=== PATIENT | female | born 1965 | race Asian ===

== ENCOUNTER 2017-03-06 16:06 | Emergency (ER) | payer BC ==
[2017-03-06 16:47] VITALS: BP 123/68
--- NOTE | 2017-03-06 17:43 | UC ---
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 LACERATION TO RIGHT (MEDIAL) FOOT AT HEEL. TETANUS UTD. - History Of Current Complaint Chief Complaint: UCLaceration Stated Complaint: RT FOOT LAC Time Seen by Provider: 03/06/17 16:40 Hx Obtained From: Patient Laceration Location: Foot Mechanism Of Injury: Sharp Trauma Onset/Duration: Sudden Onset, Lasting Hours, Still Present Severity: Mild Aggravating Factors: Movement - Allergies/Home Medications Allergies/Adverse Reactions: Allergies Allergy/AdvReac Type Severity Reaction Status Date / Time No Known Allergies Allergy Verified 03/06/17 16:47 Home Medications: Home Medications Melatonin 10 mg PO DAILY 03/06/17 [History Confirmed 03/06/17] PMH/Surg Hx/FS Hx/Imm Hx Previously Healthy: Yes - Surgical History Surgical History: Yes Surgery Procedure, Year, and Place: mastoidectomy. hysterectomy. tonsillectomy. Bronchoscopy with Mediastinoscopy - Family History Known Family History: Negative: Blood Disorder - Social History Occupation: Unemployed Lives: With Family Alcohol Use: None Substance Use Type: None Smoking Status (MU): Never Smoked Tobacco Review of Systems Constitutional: Negative Skin: Other - LACERATION RIGHT MEDIAL HEEL Eyes: Negative ENT: Negative Respiratory: Negative Cardiovascular: Negative Gastrointestinal: Negative Genitourinary: Negative Motor: Negative Neurovascular: Negative Musculoskeletal: Negative Neurological: Negative Psychological: Negative All Other Systems Reviewed And Are Negative: Yes Physical Exam Triage Information Reviewed: Yes Appearance: Well-Appearing, No Pain Distress Vital Signs: Initial Vital Signs Temp 97.2 F 03/06/17 16:42 Pulse 93 03/06/17 16:42 Resp 16 03/06/17 16:42 BP 123/68 03/06/17 16:42 Pulse Ox 99 03/06/17 16:42 Vital Signs Reviewed: Yes Eye Exam: Normal ENT Exam: Normal ENT: Positive: Normal ENT inspection Dental Exam: Normal Neck exam: Normal Neck: Positive: Supple Respiratory Exam: Normal Respiratory: Positive: Chest non-tender, Lungs clear, Normal breath sounds, No respiratory distress, No accessory muscle use Cardiovascular Exam: Normal Cardiovascular: Positive: RRR, No Murmur, Pulses Normal, Brisk Capillary Refill Abdominal Exam: Normal Musculoskeletal Exam: Normal Neurological Exam: Normal Psychological Exam: Normal Skin: Positive: Other - LACERATION RIGHT HEEL Laceration Repair - Laceration Repair 1 Description: Linear Laceration Size After Repair: Length (cm) - 2, Width (mm) - 4, Depth (mm) - 2 Cleansing Completed Via Routine Prep: Yes Irrigation With Pressure Irrigation Device: Yes Closure Material: Skin Adhesive, SteriStrips Suture Of: Skin Laceration Course/Dx - Differential Dx - Laceration/Wound Differental Diagnoses: Cellulitis, Joint Infection, Laceration Provider Diagnoses: RIGHT HEEL LACERATION WITH ADHESIVS/STERISTRIP REPAIR Discharge - Discharge Plan Condition: Stable Disposition: HOME Patient Education Materials: Skin Adhesive Care (ED), Steristrips (ED) Referrals: Kavita Moncada [Physician Resident Manager] -
== END 2017-03-06 17:49 | disposition home or self-care (01) ==
LOC: UCCORT 16:06
DX: S91.311A Laceration without foreign body, right foot, initial encounter (principal); W31.89XA Contact with other specified machinery, initial encounter
CPT/HCPCS: 12001; 99201; G0463

== ENCOUNTER 2017-04-02 07:53 | Emergency (ER) | payer BC ==
[2017-04-02] MEDS ORDERED: NS 0.9% 1000 ML* 1,000 ML IV ONE (08:42)
--- NOTE | 2017-04-02 09:09 | RAD ---
HISTORY: Left ankle medially, rule out osteomyelitis COMPARISONS: None VIEWS: 3, Frontal, lateral, and oblique views of the left ankle FINDINGS: BONE DENSITY: Normal. BONES: There is no displaced fracture. There is no appreciable erosion or periosteal reaction. JOINTS: There is no arthropathy. ALIGNMENT: There is no dislocation. SOFT TISSUES: There is a soft tissue defect with dystrophic calcification along the medial aspect of the ankle. OTHER FINDINGS: None. IMPRESSION: NO ACUTE OSSEOUS INJURY. NO APPRECIABLE EROSION OR PERIOSTEAL REACTION. PLAIN FILM FINDINGS OF OSTEOMYELITIS ARE RELATIVELY LATE FINDINGS. IF THERE IS PERSISTENT CLINICAL CONCERN FOR OSTEOMYELITIS, RECOMMEND CORRELATION WITH FOLLOWUP IMAGING, THREE-PHASE BONE SCANNING, WHITE BLOOD CELL SCAN, AND/OR MRI OF THE AFFECTED REGION.
[2017-04-02 09:18] LABS: Hematocrit 43 % (35-47); Mean Corpuscular HGB Conc 33 g/dl (31-36); Mean Corpuscular Hemoglobin 29 pg (27-31); Mean Corpuscular Volume 88 fL (80-97); Mean Platelet Volume 9 um3 (7.4-10.4); Red Blood Count 4.88 10^6/ul (4.0-5.4); Red Cell Distribution Width 14 % (10.5-15); White Blood Count 6.3 10^3/ul (3.5-10.8)
--- NOTE | 2017-04-02 09:18 | ED ---
Fior Silvestre Alfonso, scribed for Caroline Underwood MD on 04/02/17 at 0832 . Lower Extremity - HPI Summary HPI Summary: This patient is a 52 year old F presenting to [facility] with a chief complaint of a right heel wound since one month ago (03/04). There has been continual drainage from this wound. The patient rates the aching and referred pain 4/10 in severity. Symptoms aggravated by ambulation and alleviated by nothing. Patient reports diaphoresis (since yesterday and worse through the night), SOB ( on exertion), anxiousness, increased thirst, and shaking. Patient denies CP, knee pain, and abdominal pain. Pt sees Dr. Guo (surgeon) who applied a new dressing and prescribed a Bactrim as well as diflucan for 7 day course on 03/29 for this wound. The wound was last packed this morning after a shower. Pt scheduled to see Dr. Guo in follow-up as well as have a vascular study on Saturday. Pt with Denies PMHx of MRSA, cancer, and DM. PMHx of HTN, and sarcoidosis. PSHx of hysterectomy and mastoidectomy. Patients medication reviewed this visit. - History of Current Complaint Chief Complaint: EDGeneral Stated Complaint: NAUSEA/SWEATING Time Seen by Provider: 04/02/17 08:09 Hx Obtained From: Patient Onset of Pain: Prior to Arrival Onset/Duration: Still Present - 1 month Severity Initially: Moderate Severity Currently: Moderate Pain Intensity: 4 Pain Scale Used: 0-10 Numeric Timing: Constant Location: Is Discrete @ - right heel Character Of Pain: Aching - and "referred" Associated Signs And Symptoms: Positive: Other - Patient reports diaphoresis ( since yesterday and worse through the night), SOB (on exertion), anxiousness, increased thirst, and shaking. Patient denies CP, knee pain, and abdominal pain. Aggravating Factor(s): Ambulation Alleviating Factor(s): Nothing - Allergies/Home Medications Allergies/Adverse Reactions: Allergies Allergy/AdvReac Type Severity Reaction Status Date / Time No Known Allergies Allergy Verified 04/02/17 07:55 PMH/Surg Hx/FS Hx/Imm Hx Previously Healthy: Yes Endocrine/Hematology History: Denies: Hx Anticoagulant Therapy Cardiovascular History: Reports: Hx Hypertension Respiratory History: Reports: Hx Asthma, Hx Sleep Apnea - current CPAP user, Other Respiratory Problems/Disorders - sarcoidosis GI History: Reports: Hx Gastroesophageal Reflux Disease Musculoskeletal History: Reports: Hx Fibromyalgia - new dx 05/2013 Sensory History: Reports: Hx Contacts or Glasses Opthamlomology History: Reports: Hx Contacts or Glasses Neurological History: Reports: Hx Headaches Psychiatric History: Reports: Hx Depression - Surgical History Surgery Procedure, Year, and Place: mastoidectomy. hysterectomy. tonsillectomy. Bronchoscopy with Mediastinoscopy Hx Anesthesia Reactions: No Infectious Disease History: No Infectious Disease History: Denies: Traveled Outside the [place] in Last 30 Days - Family History Known Family History: Positive: Hypertension, Diabetes - Sister Negative: Blood Disorder - Social History Occupation: Unemployed Lives: Alone Alcohol Use: None Substance Use Type: Reports: None Smoking Status (MU): Never Smoked Tobacco Review of Systems Positive: Skin Diaphoresis, Other - Positive increased thirst and shaking. Eyes: Negative ENT: Negative Cardiovascular: Negative Negative: Chest Pain Positive: Shortness Of Breath Gastrointestinal: Negative Genitourinary: Negative Musculoskeletal: Negative Positive: Other - Negative knee pain. Positive: Other - Positive right heel wound, mild erythema Neurological: Negative Positive: Anxious All Other Systems Reviewed And Are Negative: Yes Physical Exam Triage Information Reviewed: Yes Vital Signs On Initial Exam: Initial Vitals Temp Pulse Resp BP Pulse Ox 95.9 F 94 20 140/104 100 04/02/17 07:55 04/02/17 07:55 04/02/17 07:55 04/02/17 07:55 04/02/17 07:55 Vital Signs Reviewed: Yes Appearance: Positive: Well-Nourished Skin: Positive: Warm, Erythema @ - left medial ankle pt with open wound, minimal circumferential erythema, no odor, no fluctuance, no induration, Other - pt diaphoretic Head/Face: Positive: Normal Head/Face Inspection Eyes: Positive: Normal, EOMI, MEGAN ENT: Positive: Normal ENT inspection Neck: Positive: Supple, Nontender, No Lymphadenopathy Respiratory/Lung Sounds: Positive: Clear to Auscultation, Breath Sounds Present Cardiovascular: Positive: Normal, RRR. Negative: Murmur Abdomen Description: Positive: Nontender, No Organomegaly, Soft Bowel Sounds: Positive: Present Musculoskeletal: Positive: Normal, Strength/ROM Intact, Other - + flex/ext knee , ankle, toes without discomfort Neurological: Positive: Normal, Sensory/Motor Intact, Alert, Oriented to Person Place, Time Psychiatric: Positive: Normal AVPU Assessment: Alert - Sheri Coma Scale Best Eye Response: 4 - Spontaneous Best Motor Response: 6 - Obeys Commands Best Verbal Response: 5 - Oriented Coma Scale Total: 15 Diagnostics - Vital Signs Vital Signs Temp Pulse Resp BP Pulse Ox 04/02/17 08:06 89 97 04/02/17 08:00 96.0 F 88 18 137/83 98 04/02/17 07:55 95.9 F 94 20 140/104 100 - Laboratory Result Diagrams: 04/02/17 08:53 04/02/17 08:53 Lab Statement: Any lab studies that have been ordered have been reviewed, and results considered in the medical decision making process. - Radiology Ankle X-ray Radiology Interpretation Completed By: Radiologist - NO ACUTE OSSEOUS INJURY. NO APPRECIABLE EROSION OR PERIOSTEAL REACTION. PLAIN FILM FINDINGS OF OSTEOMYELITIS ARE RELATIVELY LATE FINDINGS. IF THERE IS PERSISTENT CLINICAL CONCERN FOR OSTEOMYELITIS, RECOMMEND CORRELATION WITH FOLLOWUP IMAGING, THREE- PHASE BONE SCANNING, WHITE BLOOD CELL SCAN, AND/OR MRI OF THE AFFECTED REGION. - EKG 0906 Cardiac Rate: NL - 77 BPM EKG Rhythm: Sinus Rhythm EKG Interpretation: NAC Re-Evaluation - Re-Evaluation First Eval Re-Evaluation Time: 10:02 Change: Improved Comment: PT reports feeling much improved, no further diaphoresis or thirst. reviewed labs. awaiting remainder of labs and IVF. will discuss with surgery Second Eval Re-Evaluation Time: 11:35 Comment: Pt continues to feel well VSS appears markedly improved. d/w general surgery - will come eval pt Third Eval Re-Evaluation Time: 12:29 Comment: Pt continues to feel well. 03/29 culture sensitive to bactrim - continue. eval by surgery - okay to d/c home. work note. appt fri at wound clinic. return precautions discussed. Pt comfortable and in agreement with plan Lower Extremity Course/Dx - Course Assessment/Plan: Pt presents feeling shaky and diaphoretic. Pt with ongoing care to left medial ankle wound -followed by Dr. Guo. Pt denies fevers, chills. On exam, pt diaphoretic VSS. Will give IVF. check xray, labs. wound cultre. blood culture. CRP, ESR. close reassessment - Diagnoses Provider Diagnoses: Diaphoresis, Visit for wound check - Physician Notifications Discussed Care Of Patient With: Aung washington MD - PA called back Time Discussed With Above Provider: 11:35 Instructed by Provider To: Other - Consulted Dr. Washington (surgeon) who will have his PA evaluate the patient in the ED. Discharge - Discharge Plan Condition: Stable Disposition: HOME Patient Education Materials: Acute Wound Care (ED) Forms: *Work Release Referrals: Oneil Guo MD [Medical Doctor] - (Saturday, wound clinic, as scheduled ) Ana Kim [Primary Care Provider] - Additional Instructions: - Elevate your leg to help with swelling and discomfort -Continue to take Bactrim and Diflucan as prescribed - stay well hydrated -drink plenty of non-alcoholic, non-caffinated beverages - keep your appointment as scheduled on Saturday with the wound clinic - if you have ANY questions or concerns, contact Dr. Guo, your doctor, or return to the emergency department The documentation as recorded by the Fior ochoa Alfonso accurately reflects the service I personally performed and the decisions made by , Caroline Underwood MD.
[2017-04-02 09:34] LABS: Albumin 4.5 g/dL (3.2-5.2); BUN/Creatinine Ratio 11.7 (8-20); C Reactive Protein 24.91 mg/L (< 5.00); Calcium 9.6 mg/dL (8.6-10.3); EGFR African American 79.8 (>60); EGFR Non-African American 62.1 (>60); Globulin 3.2 g/dL (2-4); Potassium 4.4 mmol/L (3.5-5.0); Total Bilirubin 0.4 mg/dL (0.2-1.0); Total Protein 7.7 g/dL (6.4-8.9)
[2017-04-02 12:25] LABS: Erythrocyte Sed Rate 37 mm/Hr (0-30)
[2017-04-02 12:45] VITALS: BP 116/75
== END 2017-04-02 12:46 | disposition home or self-care (01) ==
LOC: ED 07:53
DX: R61 Generalized hyperhidrosis (principal); S91.301D Unspecified open wound, right foot, subsequent encounter; X58.XXXD Exposure to other specified factors, subsequent encounter; R06.02 Shortness of breath; R63.1 Polydipsia; F41.9 Anxiety disorder, unspecified; I10 Essential (primary) hypertension; J45.909 Unspecified asthma, uncomplicated; K21.9 Gastro-esophageal reflux disease without esophagitis; M79.7 Fibromyalgia; F32.9 Major depressive disorder, single episode, unspecified; Z90.710 Acquired absence of both cervix and uterus
CPT/HCPCS: 36415; 80053; 83605; 84484; 85025; 85652; 86140; 87040; 87070; 87077; 87186; 87205; 93005; 99283

== ENCOUNTER 2018-09-24 17:06 | Emergency (ER) | payer BC, OTHER ==
[2018-09-24 18:46] VITALS: BP 147/78
--- NOTE | 2018-09-24 19:03 | UC ---
Lower Extremity/Ankle HPI - HPI Summary HPI Summary: Pt c/o base of right great toe pain after wooden pallet on foot today at work at ~ 1130 - History of Current Complaint Chief Complaint: UCLowerExtremity Stated Complaint: RIGHT FOOT INJURY Time Seen by Provider: 09/24/18 18:37 Hx Obtained From: Patient ?: No Onset/Duration: Sudden Onset Severity Initially: Moderate Severity Currently: Moderate Pain Intensity: 8 Aggravating Factor(s): Standing, Ambulation Alleviating Factor(s): Rest, Elevation Able to Bear Weight: Yes - Risk Factors Gout Risk Factors: Age Over 40 DVT Risk Factors: Negative Septic Arthritis Risk Factor: Negative - Allergies/Home Medications Allergies/Adverse Reactions: Allergies Allergy/AdvReac Type Severity Reaction Status Date / Time BANDAGE-ADHESIVE Allergy Rash Uncoded 09/24/18 18:46 PMH/Surg Hx/FS Hx/Imm Hx Previously Healthy: Yes Other History Of: Negative For: Anticoagulant Therapy - Surgical History Surgical History: Yes Surgery Procedure, Year, and Place: mastoidectomy - Lt. hysterectomy. tonsillectomy. Bronchoscopy with Mediastinoscopy - Family History Known Family History: Positive: Hypertension, Diabetes - Sister Negative: Blood Disorder - Social History Occupation: Employed Full-time Lives: With Family Alcohol Use: None Substance Use Type: None Smoking Status (MU): Never Smoked Tobacco Have You Smoked in the Last Year: No Review of Systems All Other Systems Reviewed And Are Negative: Yes Constitutional: Positive: Negative Skin: Positive: Bruising Eyes: Positive: Negative ENT: Positive: Negative Respiratory: Positive: Negative Cardiovascular: Positive: Negative Gastrointestinal: Positive: Negative Genitourinary: Positive: Negative Motor: Positive: Negative Neurovascular: Positive: Negative Musculoskeletal: Positive: Arthralgia, Decreased ROM, Edema, Myalgia Neurological: Positive: Negative Psychological: Positive: Negative Is Patient Immunocompromised?: No Physical Exam Triage Information Reviewed: Yes Appearance: Well-Appearing Vital Signs: Initial Vital Signs Temp 98.3 F 09/24/18 18:41 Pulse 95 09/24/18 18:41 Resp 17 09/24/18 18:41 BP 147/78 09/24/18 18:41 Pulse Ox 98 09/24/18 18:41 Vital Signs Reviewed: Yes Eye Exam: Normal ENT Exam: Normal Dental Exam: Normal Neck exam: Normal Respiratory: Positive: No respiratory distress Musculoskeletal Exam: Other Musculoskeletal: Positive: ROM Limited @ - right great toe, Edema @ - base of right great toe Neurological Exam: Normal Psychological Exam: Normal Skin Exam: Other - bruising at base of right great toe. Diagnostics - Radiology No standard instances Radiology Interpretation Completed By: ED Physician - negative for fracture Lower Extremity Course/Dx - Differential Dx/Diagnosis Differential Diagnosis/HQI/PQRI: Contusion, Fracture (Closed) Provider Diagnosis: Contusion of great toe, right Discharge - Sign-Out/Discharge Documenting (check all that apply): Patient Departure All imaging exams completed and their final reports reviewed: No - Discharge Plan Condition: Stable Disposition: HOME Patient Education Materials: Foot Contusion (ED) Referrals: Messi Barragan MD [Medical Doctor] - If Needed Ana Kim [Primary Care Provider] - If Needed - Billing Disposition and Condition Condition: STABLE Disposition: Home
--- NOTE | 2018-09-25 21:12 | UC ---
- EKG/XRAY/CT Xray Comments: wet read correct Course/Dx - Diagnoses Provider Diagnoses: Contusion of great toe, right Discharge - Sign-Out/Discharge Documenting (check all that apply): Post-Discharge Follow Up All imaging exams completed and their final reports reviewed: Yes - Discharge Plan Condition: Stable Disposition: HOME Patient Education Materials: Foot Contusion (ED) Referrals: Messi Barragan MD [Medical Doctor] - If Needed Ana Kim [Primary Care Provider] - If Needed - Billing Disposition and Condition Condition: STABLE Disposition: Home
== END 2018-09-24 19:32 | disposition home or self-care (01) ==
LOC: UCCORT 17:06
DX: S90.111A Contusion of right great toe without damage to nail, initial encounter (principal); Z91.09 Other allergy status, other than to drugs and biological substances; X58.XXXA Exposure to other specified factors, initial encounter; Y92.9 Unspecified place or not applicable; Y99.0 Civilian activity done for income or pay
CPT/HCPCS: 99211; G0463

== ENCOUNTER 2019-06-30 17:07 | Emergency (ER) | payer BC, OTHER ==
[2019-06-30 17:34] VITALS: BP 155/79
--- NOTE | 2019-06-30 18:08 | UC ---
Complaint Female HPI - HPI Summary HPI Summary: Pt c/o sudden onset of urinary frequency, urgency and dysuria that began this morning. - History Of Current Complaint Chief Complaint: UCGU Stated Complaint: URINARY COMPLAINT Time Seen by Provider: 06/30/19 17:48 Hx Obtained From: Patient ?: No Onset/Duration: Sudden Onset, Lasting Days, Still Present Timing: Constant Severity Initially: Mild Severity Currently: Moderate Pain Intensity: 5 Character: Dull, Burning Aggravating Factor(s): Urination Alleviating Factor(s): Nothing Associated Signs And Symptoms: Positive: Negative - Risk Factors Ectopic Risk Factor: Negative Ovarian Torsion Risk Factor: Negative - Allergies/Home Medications Allergies/Adverse Reactions: Allergies Allergy/AdvReac Type Severity Reaction Status Date / Time BANDAGE-ADHESIVE Allergy Rash Uncoded 06/30/19 17:29 PMH/Surg Hx/FS Hx/Imm Hx Previously Healthy: Yes Respiratory History: Other - sarcoidosis Other History Of: Negative For: Anticoagulant Therapy - Surgical History Surgical History: Yes Surgery Procedure, Year, and Place: mastoidectomy - Lt. hysterectomy. tonsillectomy. Bronchoscopy with Mediastinoscopy - Family History Known Family History: Positive: Hypertension, Diabetes - Sister Negative: Blood Disorder - Social History Occupation: Employed Full-time Lives: With Family Alcohol Use: Rare Substance Use Type: None Smoking Status (MU): Never Smoked Tobacco Have You Smoked in the Last Year: No - Immunization History Vaccination Up to Date: Yes Review of Systems All Other Systems Reviewed And Are Negative: Yes Constitutional: Positive: Negative Skin: Positive: Negative Eyes: Positive: Negative ENT: Positive: Negative Respiratory: Positive: Negative Cardiovascular: Positive: Negative Gastrointestinal: Positive: Negative Genitourinary: Positive: Dysuria, Frequency, Urgency Motor: Positive: Negative Neurovascular: Positive: Negative Musculoskeletal: Positive: Negative Neurological: Positive: Negative Psychological: Positive: Negative Is Patient Immunocompromised?: No Physical Exam Triage Information Reviewed: Yes Appearance: Well-Appearing Vital Signs: Initial Vital Signs Temp 97.9 F 06/30/19 17:30 Pulse 92 06/30/19 17:30 Resp 16 06/30/19 17:30 BP 155/79 06/30/19 17:30 Pulse Ox 98 06/30/19 17:30 Vital Signs Reviewed: Yes Eye Exam: Normal ENT Exam: Normal Dental Exam: Normal Neck exam: Normal Respiratory: Positive: Decreased breath sounds Cardiovascular Exam: Normal Abdominal Exam: Normal Abdomen Description: Positive: Nontender Musculoskeletal Exam: Normal Neurological Exam: Normal Psychological Exam: Normal Skin Exam: Normal Complaint Female Dx - Differential Dx/Diagnosis Differential Diagnosis/HQI/PQRI: Urinary Tract Infection Provider Diagnosis: UTI (urinary tract infection) Discharge ED - Sign-Out/Discharge Documenting (check all that apply): Patient Departure All imaging exams completed and their final reports reviewed: No Studies - Discharge Plan Condition: Stable Disposition: HOME Prescriptions: Cephalexin CAP* [Keflex 500 CAP*] 500 mg PO Q8H #21 cap Fluconazole 100 MG TAB* [Diflucan 100 MG TAB*] 100 mg PO DAILY #2 tab Phenazopyridine TAB* [Pyridium 100 mg TAB*] 100 mg PO Q8H #3 tab Patient Education Materials: Urinary Tract Infection in Women (ED) Referrals: Ana Kim [Primary Care Provider] - If Needed Additional Instructions: Please follow up with your PCP as needed. - Billing Disposition and Condition Condition: STABLE Disposition: Home
== END 2019-06-30 18:17 | disposition home or self-care (01) ==
LOC: UCCORT 17:07
DX: N39.0 Urinary tract infection, site not specified (principal); Z91.09 Other allergy status, other than to drugs and biological substances; D86.9 Sarcoidosis, unspecified
CPT/HCPCS: 81003; 87077; 87086; 87186; 99212; G0463